=== PATIENT | female | born 1985 | race Two or more races ===

== ENCOUNTER 2023-09-01 12:59 | Emergency (ER) | payer OTHER ==
[~2023-09-01] VITALS: Ht 165.1 cm; Wt 61.4 kg
[2023-09-01 13:01] VITALS: BP 116/76; TEMP 98.5
[2023-09-01] MEDS ORDERED: AMLO5TAB66 PO (13:04)
[2023-09-01] MEDS ORDERED: PREN1TAB80 PO (13:04)
[2023-09-01] MEDS ORDERED: ALBU18HF12 PO (13:04)
[2023-09-01] MEDS ORDERED: BUPR1FIL5 SL (13:04)
[2023-09-01] MEDS ORDERED: ALBU0.8311 NEB (13:04)
[2023-09-01 14:11] LABS: BASOPHILS % (AUTO) 0.6 % (0.0-2.0); EOSINOPHILS % (AUTO) 5.3 % (1.0-6.0); HEMATOCRIT 43.5 % (36-46); HEMOGLOBIN 14.4 g/dL (12.0-16.0); LYMPHOCYTES # (AUTO) 2.3 K/uL (1.0-4.8); LYMPHOCYTES % (AUTO) 30.1 % (22.0-44.0); MEAN CORPUSCULAR HEMOGLOBIN 30.5 pg (26.0-34.0); MEAN CORPUSCULAR HGB CONC 33.1 G/dL (31.0-37.0); MEAN CORPUSCULAR VOLUME 92 fL (80-100); MONOCYTES # (AUTO) 0.4 K/uL (0.1-1.0); MONOCYTES % (AUTO) 5.9 % (2.0-9.0); NEUTROPHILS # (AUTO) 4.4 K/uL (1.8-7.7); NEUTROPHILS % (AUTO) 58.1 % (40.0-70.0); PLATELET COUNT (AUTO) 304 K/uL (150-450); RED BLOOD CELL COUNT(AUTO) 4.72 MIL/uL (4.00-5.20); RED CELL DISTRIBUTION WIDTH 13.3 % (11.5-14.5); WHITE BLOOD COUNT (AUTO) 7.6 K/uL (4.5-11.0)
[2023-09-01 14:20] LABS: ANION GAP 10 mmol/L (8-16); CALCIUM, TOTAL 9.3 mg/dL (8.8-10.5); CARBON DIOXIDE 27 mmol/L (22-29); CHLORIDE 102 mmol/L (98-107); CREATININE 0.72 mg/dL (0.60-1.30); GLOMERULAR FILTR. RATE CALC > 60 mL/min (>60); GLUCOSE,RANDOM 77 mg/dL (70-110); POTASSIUM 3.7 mmol/L (3.5-5.1); SODIUM SERUM 139 mmol/L (136-145); UREA NITROGEN, BLOOD 9 mg/dL (7-18)
[2023-09-01 14:46] LABS: ALANINE AMINOTRANSFERASE 15 U/L (12-78); ALBUMIN 3.8 g/dL (3.4-5.0); ALKALINE PHOSPHATASE 55 U/L (46-116); ASPARTATE AMINOTRANSFERASE 12 U/L (15-37); BILIRUBIN,TOTAL 0.3 mg/dL (0.1-1.0); HCG,QUANTITATIVE 6375 mIU/mL (0-6); TOTAL PROTEIN, SERUM 7.4 g/dL (6.4-8.2)
[2023-09-01 16:07] LABS: APPEARANCE,URINE CLEAR (CLEAR); BILIRUBIN,URINE NEGATIVE (NEGATIVE); COLOR,URINE YELLOW (YELLOW); GLUCOSE, URINE (UA) NEGATIVE (NEGATIVE); KETONES,URINE NEGATIVE (NEGATIVE); LEUKOCYTE ESTERASE ,URINE NEGATIVE (NEGATIVE); NITRATE,URINE NEGATIVE (NEGATIVE); OCCULT BLOOD,URINE LARGE (NEGATIVE); PH,URINE 5.5 (5.0-8.0); PROTEIN,URINE TRACE mg/dL (NEGATIVE); SPECIFIC GRAVITIY, URINE 1.022 (1.003-1.030); UROBILINOGEN,URINE <=1.0 mg/dL (<=1.0)
[2023-09-01 16:38] LABS: BACTERIA,URINE Many /HPF (None Seen); SQUAMOUS EPITHELIAL CELL,UR Many /LPF (None Seen)
[2023-09-01 16:43] VITALS: PULSE 72; RESP 20; O2SAT 100
[2023-09-01] MEDS: ALBUTEROL SULFATE 2.5 MG/0.5 ML NEB SOLUTION NEB ONE (16:43)
[2023-09-01 16:58] VITALS: PULSE 68; RESP 18; O2SAT 100
[2023-09-01] MEDS: SODIUM CHLORIDE 0.9% 1,000 ML IV ONE (17:03)
== END 2023-09-01 18:08 | disposition still patient (30) ==
LOC: EMS 13:26
DX: O20.0 Threatened abortion (principal); O99.511 Diseases of the respiratory system complicating pregnancy, first trimester; I10 Essential (primary) hypertension; J45.909 Unspecified asthma, uncomplicated; Z3A.01 Less than 8 weeks gestation of pregnancy
CPT/HCPCS: 76801; 80053; 81001; 84702; 85025; 86901; 87086; 87186; 94640; 96360; 99284; 36415-L1; 36415-TC; J7613

== ENCOUNTER 2023-09-24 01:27 | Emergency (ER) | payer OTHER ==
[~2023-09-24] VITALS: Ht 165.1 cm; Wt 61.4 kg
[~2023-09-24 01:27] MED LIST: ALBU0.8311 NEB; ALBU18HF12 PO; AMLO5TAB66 PO; BUPR1FIL5 SL; PREN1TAB80 PO
[2023-09-24 01:32] VITALS: TEMP 97.6
[2023-09-24 02:05] VITALS: PULSE 77; RESP 24; O2SAT 94
[2023-09-24] MEDS: ALBUTEROL SULFATE 2.5 MG/0.5 ML NEB SOLUTION NEB ONE (02:05)
[2023-09-24] MEDS: IPRATROPIUM BROMIDE 0.5 MG/2.5 ML NEB SOLUTION NEB ONE ×2 (02:05→05:00)
[2023-09-24 02:20] VITALS: PULSE 75; RESP 20; O2SAT 96
[2023-09-24] MEDS ORDERED: PRED-554 PO (04:15)
[2023-09-24] MEDS ORDERED: ALBU18HF12 IH (04:15)
[2023-09-24] MEDS ORDERED: GUAIFDM PO (04:15)
[2023-09-24] MEDS ORDERED: IBUP-1554 PO (04:15)
[2023-09-24] MEDS ORDERED: ACET-66 PO (04:15)
[2023-09-24] MEDS: PredniSONE 20 MG TABLET PO ONE (04:44)
[2023-09-24] MEDS: ACETAMINOPHEN 500 MG TABLET PO ONE (04:44)
[2023-09-24] MEDS: GuaiFENesin/D-METHORPHAN [SUGAR-FREE] 200-20MG/10 ML SYRUP UDCUP PO ONE (04:44)
[2023-09-24] MEDS: EPINEPHrine 1:1,000 [1 MG/ML] VIAL SQ ONE (04:46)
[2023-09-24 05:00] VITALS: BP 121/74; PULSE 73; PULSE 85; RESP 20; O2SAT 92
[2023-09-24] MEDS: ALBUTEROL SULFATE 2.5 MG/0.5 ML 5 ML NEB SOLUTION NEB ONE (05:00)
== END 2023-09-24 05:37 | disposition home or self-care (01) ==
LOC: EMS 01:27
DX: J45.901 Unspecified asthma with (acute) exacerbation (principal); I10 Essential (primary) hypertension
CPT/HCPCS: 99285; 71046; 94640; 96372; J0171; J7512; J7613